=== PATIENT | female | born 1960 | race Caucasian/White ===

== ENCOUNTER 2018-02-26 10:16 | Emergency (ER) | payer BC ==
[2018-02-26] MEDS ORDERED: 0.9 % SODIUM CHLORIDE 1,000 ML BAG IV ONE (10:38)
[2018-02-26] MEDS ORDERED: ONDANSETRON HCL IV 4 MG/2 ML VIAL IVP ONE (10:38)
--- NOTE | 2018-02-26 10:39 | Emergency Department Record ---
History of Present Illness - General Chief complaint: Vomiting Stated complaint: Vomiting Time Seen by Provider: 02/26/18 10:34 Source: Patient Mode of Arrival: Ambulatory Limitations: No limitations - History of Present Illness Initial comments: 57 yo female presents with about 2 weeks of right flank pain. She has also now developed nausea and vomiting. She has been having some urinary frequency as well. No hematuria. The pain has been fairly constant on the right. It seemed worse after walking yesterday. She developed the vomiting today. No rash. 30 years ago she had a renal stone surgically removed by Dr Johnson. GUILLEN complaint: Abdominal pain, Nausea, Vomiting -: Week(s) (2) Description of Diarrhea: Other Radiation: R flank Severity: Moderate Quality: Aching, Stabbing Consistency: Constant Improves with: None Worsens with: None Associated Symptoms: Loss of appetite - Related Data Allergies Allergy/AdvReac Type Severity Reaction Status Date / Time Penicillins Allergy PT UNSURE Verified 02/26/18 10:24 OF REACTION Review of Systems Constitutional: Denies: Chills, Fever, Malaise, Weakness Eyes: Denies: Eye discharge ENT: Denies: Congestion, Throat pain Respiratory: Denies: Cough, Dyspnea, Hemoptysis, Stridor, Wheezes Cardiovascular: Denies: Chest pain, Palpitations, Syncope Endocrine: Denies: Fatigue Gastrointestinal: Reports: Abdominal pain (right flank), Nausea, Vomiting. Denies: Constipation, Diarrhea, Hematemesis, Hematochezia, Melena Genitourinary: Reports: Dysuria, Frequency, Urgency. Denies: Abnormal menses, Hematuria, Incontinence, Retention Musculoskeletal: Reports: Back pain. Denies: Arthralgia, Myalgia Skin: Denies: Bruising, Change in color, Rash Neurological: Denies: Headache, Numbness, Weakness Psychiatric: Denies: Anxiety Hematological/Lymphatic: Denies: Blood Clots, Easy bleeding, Easy bruising Physical Exam - General General Appearance: Alert, Oriented x3, Cooperative, No acute distress Limitations: No limitations - Head Head exam: Atraumatic, Normal inspection - Eye Eye exam: Normal appearance. negative: Conjunctival injection, Scleral icterus - ENT ENT exam: Normal exam, Mucous membranes moist Ear exam: Normal external inspection Nasal Exam: Normal inspection Mouth exam: Normal external inspection - Neck Neck exam: Normal inspection - Respiratory Respiratory exam: Normal lung sounds bilaterally. negative: Respiratory distress - Cardiovascular Cardiovascular Exam: Regular rate, Normal rhythm, Normal heart sounds - GI/Abdominal GI/Abdominal exam: Soft, Tenderness (right lateral to the flank). negative: Distended, Guarding - Rectal Rectal exam: Deferred - exam: Deferred - Extremities Extremities exam: Normal inspection. negative: Full ROM, Pedal edema, Tenderness - Back Back exam: Reports: CVA tenderness (R), Tenderness. Denies: CVA tenderness (L) , Muscle spasm, Rash noted, Vertebral tenderness - Neurological Neurological exam: Alert, Normal gait, Oriented X3 - Psychiatric Psychiatric exam: Normal affect, Normal mood. negative: Agitated, Anxious - Skin Skin exam: Dry, Intact, Normal color, Warm Course - Reevaluation(s) Reevaluation #1: 02/26/18 10:38 The EMR was reviewed. No prior imaging on EMR 02/26/18 11:04 The CBC was negative The UA demonstrates blood otherwise negative for infection. 02/26/18 11:32 No acute changes on the CMP. Normal GFR. 02/26/18 12:[address] was read as distal 7mm stone The patient AFTER CT urinated and saw a large stone the size of pencil eraser in the toilet and her pain resolved Clinically this indicates she passed the stone as her pain has resolved. We discussed that 7mm is large but she it seems passed the stone with no current pain and a visible passed stone She will return if the pain returns, fever, vomiting or any indications that the stone has not passed. Medical Decision Making - Lab Data Result diagrams: 02/26/18 10:34 02/26/18 10:34 Disposition Disposition: Discharge Clinical Impression: Renal colic on right side Disposition: Home, Self-Care Condition: (1) Good Instructions: Kidney Stones (ED), Renal Colic (ED) Additional Instructions: Return to ED if your symptoms worsen or if you have any concerns. Take the prescriptions provided today as directed. Follow-up with your family doctor for the next available appointment. Review the final Emergency Record and test results with your doctor on follow up Forms: Patient Portal Access Time of Disposition: 12:41 Quality - Quality Measures Quality Measures: N/A - Blood Pressure Screening Does Patient Have Any of the Following: No Blood Pressure Classification: Hypertensive Reading Systolic Measurement: 181 Diastolic Measurement: 119 Screening for High Blood Pressure: < Pre-Hypertensive BP, F/U Documented > [ G8950] Pre-Hypertensive Follow-up Interventions: Referral to alternative/primary care provider.
[2018-02-26] MEDS ORDERED: ACETAMINOPHEN 1,000 MG/100 ML BTL IVPB ONE (10:52)
[2018-02-26 10:53] LABS: URINE APPEARANCE SL CLOUDY; URINE BILIRUBIN NEGATIVE (NEGATIVE); URINE BLOOD LARGE (NEGATIVE); URINE COLOR YELLOW; URINE GLUCOSE (UA) NEGATIVE (NEGATIVE); URINE KETONE NEGATIVE (NEGATIVE); URINE LEUKOCYTE ESTERASE NEGATIVE (NEGATIVE); URINE NITRITE NEGATIVE (NEGATIVE); URINE PROTEIN NEGATIVE (NEGATIVE); URINE UROBILINOGEN 0.2 E.U./dL (0.20 - 1.00)
[2018-02-26 10:54] LABS: BASO % 0.5 % (0-6); GRAN % 65.9 % (47-80); HEMATOCRIT 47.9 % (35.0-47.0); HEMOGLOBIN 15.5 gm/dl (11.6-16.0); LYMPH % 25.6 % (16-45); MEAN CELL VOLUME 88.5 fl (81-97); MEAN CORPUSCULAR HGB CONC 32.4 g/dl (32-36); MEAN PLATELET VOLUME 9.2 fl (7.4-10.4); PLATELET COUNT 335 K/uL (130-400); RED BLOOD COUNT 5.41 M/uL (3.80-5.40); RED CELL DISTRIBUTION WIDTH 13.8 % (11.5-14.5)
[2018-02-26 10:58] LABS: URINE RBC 21 - 35 (NONE SEEN); URINE WBC NONE SEEN (0-2/hpf)
[2018-02-26 10:59] LABS: MEAN CORPUSCULAR HEMOGLOBIN 28.6 pg (27-33)
[2018-02-26 11:03] LABS: BLOOD UREA NITROGEN 19 mg/dL (6-20); EST GLOMERULAR FILTRATION RATE > 60 mL/min
[2018-02-26 11:04] LABS: TOTAL PROTEIN 7.5 g/dL (6.6-8.7)
[2018-02-26 11:06] LABS: GLUCOSE,RANDOM 145 mg/dL (74-109)
[2018-02-26 11:09] LABS: ALB/GLOB RATIO 1.3 (1.1-1.8); ALBUMIN 4.3 g/dL (4.0-5.0); ALKALINE PHOSPHATASE 86 U/L (35-104); ALT/SGPT 28 U/L (<33); AST/SGOT 25 U/L (10.0-35.0)
[2018-02-26] MEDS ORDERED: KETOROLAC 30 MG/ML VIAL IVP ONE (11:31)
--- NOTE | 2018-02-28 18:23 | CT SCAN REPORT ---
EXAM: CT SCAN ABDOMEN/PELVIS WO CONTRAST HISTORY: RIGHT FLANK PAIN. TECHNIQUE: Sequential axial images were obtained from the diaphragms through the ischiorectal fossa without intravenous or oral contrast administration. FINDINGS: There is a 7 mm obstructing calculus in the distal right ureter just proximal to the ureterovesicular junction. There is moderate right hydronephrosis. There is an additional calculus in the right kidney. There is a small calculus in the left kidney. There are likely left peripelvic cystic lesions. The visualized lung bases appear normal. There is fatty infiltration of the liver. Gallbladder has been surgically removed. The pancreas and spleen appear normal. The adrenal glands appear normal. The small bowel appears normal. The colon appears normal. There is hyperdensity within the urinary bladder. The osseous structures are normal. IMPRESSION: A 7 MM CALCULUS IN THE DISTAL RIGHT URETER JUST PROXIMAL TO THE URETEROVESICULAR JUNCTION. THIS PRODUCES MODERATE RIGHT HYDRONEPHROSIS. THERE ARE NONOBSTRUCTING CALCULI IN BOTH KIDNEYS. THERE IS HYPERDENSITY WITHIN THE URINARY BLADDER, WHICH MAY REPRESENT HEMORRHAGE. THERE ARE LIKELY SMALL CYSTIC LESIONS IN THE LEFT RENAL PELVIS. JOB NUMBER: [id number] [facility]
== END 2018-02-26 13:04 | disposition home or self-care (01) ==
LOC: ER 10:16
DX: N20.0 Calculus of kidney (principal); R11.2 Nausea with vomiting, unspecified; I10 Essential (primary) hypertension; Z87.442 Personal history of urinary calculi
CPT/HCPCS: 99284 ×2; 96365; 96375; 85025; 80053; 81001; 74176; J2405; J7030

== ENCOUNTER 2018-05-22 10:47 | Day surgery (SDC) | payer BC ==
[2018-05-22] MEDS ORDERED: PROPOFOL 10 MG/ML VIAL IV ONE (10:48)
[2018-05-22] MEDS ORDERED: LIDOCAINE 2% MDV (20MG/ML) 20ML VIAL IV ONE (10:48)
--- NOTE | 2018-05-25 09:30 | Operative Note ---
DATE OF SURGERY: SURGEON: Denny Calderón MD OPERATION: COLONOSCOPY. INDICATIONS: This is a 57-year-old female with family history of colon cancer and personal history of colon polyps who presented for surveillance colonoscopy. POSTOPERATIVE DIAGNOSES: 1. Left-sided colonic diverticulosis. 2. Otherwise normal colon and terminal ileum. ANESTHESIA: Sedation is per Anesthesia. Pulse oximetry was monitored throughout the procedure to maintain O2 saturation of 90% or greater. Supplemental oxygen was administered via nasal cannula. Cardiac and vital signs were monitored throughout the duration of the procedure, and they were stable. The procedure of colonoscopy and risks and alternatives of the procedure, including the risk of bleeding and perforation, among others, were explained to the patient who voiced understanding and agreed to have the procedure done. Physical examination was performed, and the patient was found stable for sedation. PROCEDURE: The patient was placed in the left lateral position. Sedation was initiated. A digital rectal exam was performed and showed some mild external hemorrhoids with no palpable rectal masses. An Olympus PCF-180AL colonoscope was then inserted into the rectum under direct visualization. It was advanced to the cecum without difficulty. The ileocecal valve and appendiceal orifice were identified and photographed. The colonic mucosa was carefully examined upon introduction of the colonoscope. There were scattered diverticula noted in the sigmoid and descending colon. There were no other lesions noted. The ileocecal valve was intubated and the terminal ileal mucosa was inspected for about 10 cm and it appeared normal. The colonoscope was then withdrawn while carefully examining the colonic mucosal surfaces. No other lesions were noted. In the rectum, retroflexion was performed and grade 1 internal hemorrhoids were noted. The colonoscope was then withdrawn and the procedure was terminated. The patient tolerated the procedure well without any immediate complications. The patient remained with stable vital signs and was transferred to the recovery room. RECOMMENDATIONS: 1. The patient should be on a high-fiber diet. 2. The patient is to have a repeat colonoscopy for surveillance in 5 years. Thank you for allowing me to participate in the care of your patient. CC: Rylie ZABALA
== END 2018-05-22 13:30 | disposition home or self-care (01) ==
LOC: HOP 10:47
PROVIDERS: ATTEND Internal Medicine Gastroenterology
DX: Z12.11 Encounter for screening for malignant neoplasm of colon (principal); Z80.0 Family history of malignant neoplasm of digestive organs; Z86.010 Personal history of colon polyps; K57.30 Diverticulosis of large intestine without perforation or abscess without bleeding; I10 Essential (primary) hypertension; E78.00 Pure hypercholesterolemia, unspecified
CPT/HCPCS: 00811; G0105

== ENCOUNTER 2018-06-11 11:03 | Emergency (ER) | payer BC ==
[2018-06-11] MEDS ORDERED: ONDANSETRON HCL IV 4 MG/2 ML VIAL IVP ONE ×2 (11:21→14:01)
[2018-06-11] MEDS ORDERED: SODIUM CHLORIDE 0.9% 500 ML IV ONE (11:21)
[2018-06-11] MEDS ORDERED: KETOROLAC 30 MG/ML VIAL IVP ONE ×2 (11:21→14:06)
--- NOTE | 2018-06-11 11:27 | Emergency Department Record ---
History of Present Illness - General Chief Complaint: Abdominal Pain Stated Complaint: ABD PAIN/KIDNEY STONE Time Seen by Provider: 06/11/18 11:19 Source: Patient Mode of Arrival: Ambulatory Limitations: No limitations - History of Present Illness Initial Comments: 57 yo female presents with right sided pain that started 2 hours ago. She has associated nausea with some vomiting. The pain is sharp. She did have a renal stone she passed 3 months ago. She has not had pain since February. No diarrhea. No rash. No fevers. No recent illness. She did have surgery for a renal stone about [address] Diamond. Complaint: Abdominal pain, Flank pain Onset/Timin -: Hour(s) (2) Radiation: None Migration to: R Flank Severity scale (1-10): 10 Quality: Aching, Sharp, Stabbing Improves With: Nothing Worsens With: Nothing Associated Symptoms: Hematuria, Nausea, Vomiting - Related Data Home Medications Medication Instructions Recorded Confirmed Last Taken Cholecalciferol (Vitamin D3) 2,000 unit PO DAILY 06/11/18 06/11/18 06/10/18 [Vitamin D3] Estrogens, Conjugated [Premarin] 0.45 mg PO DAILY 06/11/18 06/11/18 06/10/18 Levothyroxine Sodium [Synthroid] 75 mcg PO DAILY 06/11/18 06/11/18 06/10/18 Lisinopril 10 mg PO DAILY 06/11/18 06/11/18 06/10/18 Metoprolol Succinate [Toprol Xl] 100 mg PO DAILY 06/11/18 06/11/18 06/10/18 Rosuvastatin Calcium 20 mg PO DAILY 06/11/18 06/11/18 06/10/18 Allergies Allergy/AdvReac Type Severity Reaction Status Date / Time Penicillins Allergy PT UNSURE Verified 06/11/18 13:16 OF REACTION Travel Screening - Travel/Exposure Within Last 30 Days Have you traveled within the last 30 days?: No - Travel/Exposure Within Last Year Have you traveled outside the [place] in the last year?: No - Additonal Travel Details Have you been exposed to anyone with a communicable illness?: No - Travel Symptoms Symptom Screening: None Review of Systems Constitutional: Denies: Chills, Fever, Malaise, Weakness Eyes: Denies: Eye discharge ENT: Denies: Congestion, Throat pain Respiratory: Denies: Cough Cardiovascular: Denies: Chest pain, Palpitations, Syncope Endocrine: Denies: Fatigue Gastrointestinal: Reports: Abdominal pain, Nausea, Vomiting. Denies: Constipation, Diarrhea, Hematemesis Genitourinary: Denies: Dysuria, Urgency Musculoskeletal: Reports: Back pain. Denies: Arthralgia, Neck pain Skin: Denies: Bruising, Change in color, Rash Neurological: Denies: Headache Psychiatric: Denies: Anxiety Hematological/Lymphatic: Denies: Easy bleeding, Easy bruising Past Medical History - SOCIAL HISTORY Smoking Status: Never smoker Alcohol Use: None Drug Use: None - RESPIRATORY Hx Respiratory Disorders: Yes Hx Sleep Apnea: Yes Hx of CPAP: No - CARDIOVASCULAR Hx Cardio Disorders: Yes Hx Hypertension: Yes Comment:: high cholesterol - NEURO Hx Neuro Disorders: Yes Hx Headaches: Yes - GI Hx GI Disorders: Yes Hx of Polyps: Yes Comment:: colitis - Hx Genitourinary Disorders: Yes Hx Kidney Stones: Yes (sx removed) Hx UTI: Yes - ENDOCRINE Hx Endocrine Disorders: Yes Hx Thyroid Disease: Yes - MUSCULOSKELETAL Hx Musculoskeletal Disorders: No - PSYCH Hx Psych Problems: No - HEMATOLOGY/ONCOLOGY Hx Hematology/Oncology Disorders: Yes Hx Cancer: Yes (melanoma) Family Medical History Any Significant Family History?: No Family Hx Comment (NOT TO BE USED IN PLACE OF ITEMS BELOW): father anuersym , and mother colon cancer Hx Cancer: Mother Hx Heart Disease: Brother/Sister Physical Exam - General General Appearance: Alert, Oriented x3, Cooperative, No acute distress Limitations: No limitations - Head Head exam: Atraumatic, Normal inspection - Eye Eye exam: Normal appearance. negative: Conjunctival injection - ENT ENT exam: Normal exam Ear exam: Normal external inspection Nasal Exam: Normal inspection Mouth exam: Normal external inspection - Neck Neck exam: Normal inspection - Respiratory Respiratory exam: Normal lung sounds bilaterally. negative: Respiratory distress - Cardiovascular Cardiovascular Exam: Regular rate, Normal rhythm, Normal heart sounds - GI/Abdominal GI/Abdominal exam: Soft. negative: Distended, Guarding, Rebound, Rigid, Tenderness - Rectal Rectal exam: Deferred - exam: Deferred - Extremities Extremities exam: Normal inspection - Back Back exam: Denies: CVA tenderness (R), CVA tenderness (L), Paraspinal tenderness , Rash noted, Tenderness, Vertebral tenderness - Neurological Neurological exam: Alert, Oriented X3 - Psychiatric Psychiatric exam: Normal affect, Normal mood. negative: Agitated, Anxious - Skin Skin exam: Dry, Intact, Normal color, Warm Course Vital Signs 06/11/18 11:05 Temperature 97.6 F Pulse Rate 65 Respiratory 20 Rate Blood Pressure 186/114 Pulse Ox 96 - Reevaluation(s) Reevaluation #1: 06/11/18 12:06 No acute changes on the CBC or CMP 06/11/18 12:06 First UA with signs of significant contamination. Will request a repeat. 06/11/18 12:42 The patient is resting comfortably with controlled pain. Waiting for CT results 06/11/18 12:49 06/11/18 13:[address] Negron of urology. The patient is doing well with no pain. No fever. Normal WBC on CBC. She can be seen tomorrow in the office with him. 06/11/18 14:37 UA remains N-LE- with no WBC's. She still has a significant numbers of epithelial cells indicating contamination. She is not demonstrating signs of infection. Bacteria noted but the UA is not indicative of infection with the other factors normal and numerous epi's. I requested a cath UA. She refused this and does not consent to a cath UA. We discussed signs and symptoms of infection/ infected stone. She does not have any signs of infection but I recommended a dose of antibiotics to cover until tomorrow's appointment. We discussed risks of infected stone but she will not consent to a clean cath UA. With shared decision making she agrees to discharge on the antibiotic, return if fever, uncontrolled pain, or any concerns. She has an appointment at 4:15pm tomorrow with Dr Negron [facility]. No fever, tachycardia or abnormal blood pressure findings to suggest infection. 06/11/18 14:41 Medical Decision Making - Lab Data Result diagrams: 06/11/18 11:25 06/11/18 11:25 Disposition Disposition: Discharge Clinical Impression: Renal colic on right side Disposition: Home, Self-Care Condition: (1) Good Instructions: Renal Colic (ED) Additional Instructions: Return to ED if your symptoms worsen or if you have any new concerns. Review the final Emergency Record and test results with you for follow up tomorrow with Dr Negron. Take a copy of the CT scan with your to your appointment with Dr Hardy Off work tomorrow Immediate return if you have have any uncontrolled pain or fever. Referrals: ERIN NEGRON M.D. [MEDICAL DOCTOR] - Forms: Patient Portal Access Time of Disposition: 13:21 Quality - Quality Measures Quality Measures: N/A - Blood Pressure Screening Does Patient Have Any of the Following: Active Dx of HTN Blood Pressure Classification: Hypertensive Reading Systolic Measurement: 141 Diastolic Measurement: 79 Screening for High Blood Pressure: Patient Exclusion, Hx of HTN [G9744]
[2018-06-11 11:29] LABS: BASO % 0.5 % (0-6); GRAN % 71.8 % (47-80); HEMATOCRIT 47.9 % (35.0-47.0); HEMOGLOBIN 16.1 gm/dl (11.6-16.0); LYMPH % 22.5 % (16-45); MEAN CELL VOLUME 87.4 fl (81-97); MEAN CORPUSCULAR HEMOGLOBIN 29.3 pg (27-33); MEAN CORPUSCULAR HGB CONC 33.6 g/dl (32-36); MEAN PLATELET VOLUME 9.3 fl (7.4-10.4); MONO % 4.2 % (0-9); PLATELET COUNT 364 K/uL (130-400); RED BLOOD COUNT 5.48 M/uL (3.80-5.40); RED CELL DISTRIBUTION WIDTH 13.7 % (11.5-14.5); WHITE BLOOD COUNT W/O DIFF 8.2 K/uL (4.2-12.2)
[2018-06-11 11:32] LABS: URINE APPEARANCE CLEAR; URINE BILIRUBIN NEGATIVE (NEGATIVE); URINE BLOOD MODERATE (NEGATIVE); URINE COLOR YELLOW; URINE GLUCOSE (UA) NEGATIVE (NEGATIVE); URINE KETONE TRACE (NEGATIVE); URINE LEUKOCYTE ESTERASE NEGATIVE (NEGATIVE); URINE NITRITE NEGATIVE (NEGATIVE); URINE PROTEIN NEGATIVE (NEGATIVE); URINE UROBILINOGEN 0.2 E.U./dL (0.20 - 1.00)
[2018-06-11 11:39] LABS: BLOOD UREA NITROGEN 17 mg/dL (6-20); EST GLOMERULAR FILTRATION RATE > 60 mL/min; TOTAL PROTEIN 7.5 g/dL (6.6-8.7)
[2018-06-11 11:41] LABS: PROTHROMBIN TIME (PATIENT) 10.3 SECONDS (9.5-12.1); URINE BACTERIA 4+; URINE EPITHELIAL CELLS 21 - 35 (FEW); URINE RBC 0 - 2 (NONE SEEN)
[2018-06-11 11:42] LABS: GLUCOSE,RANDOM 153 mg/dL (74-109)
[2018-06-11 11:44] LABS: ALB/GLOB RATIO 1.5 (1.1-1.8); ALBUMIN 4.5 g/dL (4.0-5.0); ALKALINE PHOSPHATASE 92 U/L (35-104); ALT/SGPT 21 U/L (<33); AST/SGOT 21 U/L (10.0-35.0)
[2018-06-11] MEDS ORDERED: HYDROCODONE/APAP 5/325MG TABLET PO ONE (13:16)
[2018-06-11] MEDS ORDERED: ONDANSETRON 4 MG ODT TABLET SL ONE (13:16)
[2018-06-11] MEDS ORDERED: TAMSULOSIN HCL 0.4 MG CAP.ER.24H PO ONE (13:17)
[2018-06-11 13:42] LABS: URINE APPEARANCE CLEAR; URINE BILIRUBIN NEGATIVE (NEGATIVE); URINE BLOOD MODERATE (NEGATIVE); URINE COLOR YELLOW; URINE GLUCOSE (UA) NEGATIVE (NEGATIVE); URINE KETONE NEGATIVE (NEGATIVE); URINE LEUKOCYTE ESTERASE NEGATIVE (NEGATIVE); URINE PROTEIN NEGATIVE (NEGATIVE); URINE UROBILINOGEN 0.2 E.U./dL (0.20 - 1.00)
[2018-06-11 13:52] LABS: URINE NITRITE NEGATIVE (NEGATIVE)
[2018-06-11 13:54] LABS: URINE BACTERIA 2+; URINE WBC 0 - 2 (0-2/hpf)
[2018-06-11 14:03] LABS: URINE MUCUS LIGHT
[2018-06-11] MEDS ORDERED: LEVOFLOXACIN 500 MG TABLET PO ONE (14:40)
--- NOTE | 2018-06-12 14:59 | CT SCAN REPORT ---
EXAM: CT OF THE ABDOMEN AND PELVIS WITHOUT CONTRAST HISTORY: RIGHT SIDED ABDOMINAL PAIN FOR THREE HOURS. CHOLECYSTECTOMY. HYSTERECTOMY. HISTORY OF KIDNEY STONES. TECHNIQUE: Axial CT scan of the abdomen and pelvis was performed without oral or IV contrast. Comparison: CT of the abdomen and pelvis 02/26/18. FINDINGS: Surgical clips in the gallbladder fossas consistent with cholecystectomy and the uterus is also not identified consistent with the surgical history. There are bilateral small intrarenal calcifications consistent with small currently nonobstructing intrarenal calculi, however, there is also mild hydronephrosis and hydroureter on the right with the dilated right ureter followed down into the pelvis where it leads to an approximately 9 mm in diameter and 8 mm in length calculus. This is relatively similar in size to a calculus seen in the distal right ureter back on 02/26/18 and correlation as to whether this may be the same calculus suggested. On the prior study there was a calculus present in the lower pole of the right kidney, but this appears to be the same calculus as seen in the lower pole of the right kidney today as well with no obvious 9 mm calculus within the right kidney back on 02/26 that may account for the distal right ureteral calculus today. The appearance on the left suggesting some parapelvic renal cysts as before. No hydroureter on the left with no left ureteral calculus seen and no bladder calculus evident. Evaluation of the bowel and viscera very limited without oral or IV contrast. Given this limitation, no definite hepatic, splenic, adrenal, pancreatic, or right renal mass evident. There may be a very tiny angiomyolipoma in the lower pole of the left kidney with a similar appearance seen previously. Mild diverticulosis left side of the colon, but no definite diverticulitis evident. No free intraperitoneal air or free intraperitoneal fluid identified. Some scattered hypertrophic spurring in the lumbar spine. IMPRESSION: 1. APPROXIMATELY 9 MM IN SIZE DISTAL RIGHT URETERAL CALCULUS QUITE SIMILAR TO THE CALCULUS SEEN IN THIS APPROXIMATE LOCATION BACK ON 02/26/18 AND CLINICAL CORRELATION TO WHETHER THE PRIOR DISTAL RIGHT URETERAL CALCULUS EVER PASSED IS SUGGESTED. ASSOCIATED MILD HYDRONEPHROSIS AND HYDROURETER ON THE RIGHT ALSO SIMILAR TO BEFORE. 2. NONOBSTRUCTING CALCULI IN BOTH KIDNEYS. THERE ARE PROBABLY SMALL PARAPELVIC LEFT RENAL CYSTS BEFORE AND POSSIBLY A TINY ANGIOMYOLIPOMA LOWER POLE LEFT KIDNEY BEFORE. 3. POSTOP CHOLECYSTECTOMY AND HYSTERECTOMY. 4. DIVERTICULOSIS LEFT SIDE OF THE COLON, BUT NO DIVERTICULITIS EVIDENT. J[facility]BER: [id number] [facility]
== END 2018-06-11 15:01 | disposition home or self-care (01) ==
LOC: ER 11:03
DX: N20.0 Calculus of kidney (principal); R11.2 Nausea with vomiting, unspecified; R31.0 Gross hematuria; I10 Essential (primary) hypertension; Z87.442 Personal history of urinary calculi
CPT/HCPCS: 99284 ×2; 96376; 96374; 96375; 85025; 85730; 85610; 80053; 81001; 74176; J1885; J2405